=== PATIENT | male | born 1970 | race African-American/Black ===

== ENCOUNTER 2019-07-28 01:17 | Inpatient (IN) | payer MEDICARE, OTHER ==
[~2019-07-28] VITALS: Ht 185.4 cm; Wt 60.3 kg
--- NOTE | 2019-07-28 01:20 | NUR ---
PT BIB EMS C/O TESTICULAR SWELLING X15 MIN CONTRACT DESIGNER. PT AOX4. NAD NOTED. RESP EVEN AND UNLABORED. PT ON MONITOR IN BED 9. WILL CONTINUE TO MONITOR.
--- NOTE | 2019-07-28 01:59 | NUR ---
URINE COLLECTED AND SENT TO LAB
[2019-07-28 02:29] LABS: APPEARANCE,URINE SLIGHTLY CLOUDY (CLEAR); COLOR,URINE YELLOW (YELLOW); PROTEIN,URINE TRACE mg/dl (NEGATIVE); UGLUCOSE NEGATIVE (NEGATIVE)
[2019-07-28 02:30] LABS: BACTERIA,URINE Many /HPF (None Seen); BILIRUBIN,URINE SMALL (NEGATIVE); BLOOD, URINE NEGATIVE Ery/uL (NEGATIVE); KETONES,URINE TRACE (NEGATIVE); LEUKOCYTE ESTERASE ,URINE 2+ (NEGATIVE); NITRITE, URINE POSITIVE (NEGATIVE); RBC,URINE 0-2 /HPF (0-2); SQUAMOUS EPITHELIAL CELL,UR Few /HPF (None Seen); UROBILINOGEN,URINE 0.2 EU/dL (0.2); WBC,URINE TOO NUMEROUS TO COUN /HPF (0-3)
[2019-07-28] MEDS ORDERED: CEFTRIAXONE 1 G in IV D5W 50 ML IV ONE (04:30)
[2019-07-28] MEDS ORDERED: IV NS 0.9% 1,000 ML BAG IV ONE (04:30)
[2019-07-28] MEDS ORDERED: CEFTRIAXONE 1GM BAG (ER ONLY) 50 ML IV ONE (04:50)
--- NOTE | 2019-07-28 04:59 | NUR ---
BLOOD DRAWN AND GIVEN TO LAB
[2019-07-28 05:06] LABS: BASOPHILS % (AUTO) 0.6 % (0.0-2.0); HEMATOCRIT 33 % (39-51); HEMOGLOBIN 10.6 g/dL (13.5-17.5); LYMPHOCYTES # (AUTO) 1.1 /CMM (0.8-4.8); LYMPHOCYTES % (AUTO) 12.7 % (20.0-44.0); MEAN CORPUSCULAR HGB CONC 32 g/dl (31.0-36.0); MEAN CORPUSCULAR VOLUME 93 fL (80-96); MONOCYTES # (AUTO) 0.4 /CMM (0.1-1.30); MONOCYTES % (AUTO) 4.2 % (2.0-12.0); NEUTROPHILS # (AUTO) 7.1 /CMM (1.8-8.9); NEUTROPHILS % (AUTO) 80.5 % (43.0-81.0); PLATELET COUNT (AUTO) 243 /CMM (150-450); RED BLOOD CELL COUNT(AUTO) 3.54 MIL/uL (4.5-6.0); WHITE BLOOD COUNT (AUTO) 8.8 K/uL (4.3-11.0)
[2019-07-28 05:15] LABS: CALCIUM, SERUM 8.5 mg/dL (8.5-10.1); CREATININE 0.9 mg/dL (0.6-1.3)
[2019-07-28] MEDS ORDERED: IV NS 0.9% 250 ML IV ONE (05:31)
[2019-07-28] MEDS ORDERED: CT SWABBABLE VALVE TRANS SET 1 EA INFUS.SET MC ONE (05:31)
[2019-07-28] MEDS ORDERED: IOHEXOL-300 100 ML VIAL IV ONE (05:31)
[2019-07-28] MEDS ORDERED: MORPHINE SULFATE INJ 4 MG/ML DISP.SYRIN ONE (05:35)
--- NOTE | 2019-07-28 05:41 | NUR ---
PT TAKEN TO RADIOLOGY VIA [facility]
[2019-07-28] MEDS ORDERED: MORPHINE SULFATE INJ 2 MG/ML DISP.SYRIN IV ONE (06:00)
--- NOTE | 2019-07-28 07:43 | NUR ---
CALLED [facility] ITS DR. POWERS
--- NOTE | 2019-07-28 07:52 | NUR ---
CALLED FOR [facility] BED.
--- NOTE | 2019-07-28 08:12 | NUR ---
CALLED FOR [facility] BED.
--- NOTE | 2019-07-28 08:18 | NUR ---
CALLED [facility] ITS DR. POWERS
--- NOTE | 2019-07-28 08:45 | NUR ---
REPORT GIVEN TO MAHI COYLE OF [facility]
[2019-07-28 09:25] VITALS: BP 112/57
--- NOTE | 2019-07-28 09:30 | NUR ---
ROAD MAKER NOTES PATIENT ADMITTED FROM ER 48 Y/OLD MALE ON MED /SURGE DX OF RIGHT TESTICULAR MASS/UTI. PATIENT A/O X4, NO ACUTE RESPIRATORY DISTRESS. PATIENT PARAPLEGIC ON LOWER EXTREMITIES, INCONTINENT OF URINE SELF CATHETERIZING. SKIN ASSESSMENT DONE INTACT, PATIENT HAS A EDEMA ON RIGHT TESTICLE, WAS COMPLAINING OF GENERALIZED PAIN 10/10 PER PAIN SCALE. V/S TAKEN BP BP-112/57, R-19, P-71, T-97.8, O2-100 ROOM AIR. NEEDS ATTENDED AND ANTICIPATED, IV ACCESS ON LEFT AC AREA INTACT, STARTED NS AT 100 ML/HR INTACT. DR CORBETT AWARE OF NEW PATIENT AND MEDICATION. CONTINUED MONITORING.
[2019-07-28] MEDS ORDERED: OXYB5TAB16 PO (10:45)
[2019-07-28] MEDS ORDERED: ACET325T53 PO (10:45)
[2019-07-28] MEDS ORDERED: HYDR-4354 PO (10:45)
[2019-07-28] MEDS ORDERED: BACL20TA PO (10:45)
[2019-07-28] MEDS ORDERED: CRAN450C PO (10:45)
[2019-07-28] MEDS ORDERED: ONDANSETRON HCL/PF 4 MG/2 ML VIAL IVP PRN (12:30)
[2019-07-28] MEDS ORDERED: Z GUARD REMEDY 2 OZ OINT TP PRN (12:30)
[2019-07-28] MEDS ORDERED: ACETAMINOPHEN 325 MG TABLET PO PRN (12:30)
[2019-07-28] MEDS ORDERED: MAG HYDROX/AL HYDROX/SIMETH 30 ML UDC PO PRN (12:30)
[2019-07-28] MEDS ORDERED: MAGNESIUM HYDROXIDE 30 ML UDC PO PRN (12:30)
[2019-07-28] MEDS ORDERED: ZOLPIDEM TARTRATE 5 MG TABLET PO PRN (12:30)
[2019-07-28] MEDS: BACLOFEN (10 MG) 10 MG TABLET PO SCH ×2 (13:30→17:47)
[2019-07-28] MEDS: MORPHINE SULFATE INJ 2 MG/ML DISP.SYRIN IV PRN ×3 (13:31→21:57)
[2019-07-28] MEDS: OXYBUTYNIN CHLORIDE 5 MG TABLET PO SCH ×2 (13:31→17:48)
--- NOTE | 2019-07-28 13:31 | NUR ---
RN NOTES ADMINISTERED MORPHINE SULFATE 2 MG/ML IV PUSH FOR PAIN 10/10 GENERALIZED PER PATIENT REQUEST, V/S TAKEN [id number], P-75, R-20. ALSO ADMINISTERED SCHEDULED MEDICATION. PATIENT GET IRRITABLE EASILY. CALL LIGHT WITHIN TO REACH. CONTINUED MONITORING.
[2019-07-28] MEDS: IV NS 0.9% 1,000 ML IV PRN (14:22)
[2019-07-28 16:00] VITALS: BP 112/63
--- NOTE | 2019-07-28 17:53 | NUR ---
rn notes administered morphine sulfate2 mg/ml iv push for generalized pain 06/01 per patient request, v/s taken bp 112/63, p-76, r-18 encouraged to increased fluid intake.
--- NOTE | 2019-07-28 19:22 | NUR ---
rn notes patient catheterized in and out x1 output was 400 ml collected ua/uc at this time. medication were administered for pain effective, call light within to reach. safety precaution maintained al the time. endorsed oncoming nurse follow plan of care.
--- NOTE | 2019-07-28 19:40 | NUR ---
MS RN RECEIVE PT IN BED A/O X 3, STABLE AND NOT IN DISTRESS, SAFETY MEASURES AT ALL TIMES. WILL CONT TO MONITOR
[2019-07-28 20:00] VITALS: BP_SYST 103; BP_SYST 95; BP_DIAS 60
[2019-07-28 22:41] LABS: APPEARANCE,URINE SL CLOUDY (CLEAR); BILIRUBIN,URINE NEGATIVE (NEGATIVE); BLOOD, URINE TRACE Ery/uL (NEGATIVE); COLOR,URINE YELLOW (YELLOW); KETONES,URINE NEGATIVE (NEGATIVE); LEUKOCYTE ESTERASE ,URINE NEGATIVE (NEGATIVE); NITRITE, URINE POSITIVE (NEGATIVE); PH,URINE 6.5 (5.0-8.0); PROTEIN,URINE NEGATIVE (NEGATIVE); UGLUCOSE NEGATIVE (NEGATIVE); UROBILINOGEN,URINE 0.2 EU/dL (0.2)
--- NOTE | 2019-07-28 22:53 | NUR ---
[facility]INA HOSPITALIST SPOKE TO CARLOS PT C/O REQUESTING TO INCREASE DOSAGE OF HIS MORPHINE PT FEELS 2 MG DOESN'T LAST LONG WITH HIS PAIN IN HIS TESTICULAR. PER CARLOS HOSPITALIST "YOU CAN REPLACE THE NEXT DOSE WITH MORPHINE 4 MG IVP X 1 BUT STICK TO MORPHINE 2MG IVP Q4HR AFTER THAT. GIVE AT 07/29/19 0157 MORPHINE 4 MG IVP X 1 ONCE. READ BACK AND VERIFIED ORDERS NOTED AND CARRIED OUT.
[2019-07-28 23:30] LABS: BACTERIA,URINE Many /HPF (None Seen); SQUAMOUS EPITHELIAL CELL,UR Few /HPF (None Seen)
[2019-07-29] MEDS ORDERED: MORPHINE SULFATE INJ 4 MG/ML DISP.SYRIN IV ONE (01:57)
[2019-07-29] MEDS: IV NS 0.9% 1,000 ML IV PRN ×2 (04:48→22:16)
[2019-07-29] MEDS: CEFTRIAXONE 1 G in IV D5W 50 ML IV SCH (05:00)
--- NOTE | 2019-07-29 06:13 | NUR ---
MS RN PT ASLEEP AND EASILY AWAKEN, NO S/S OF DISTRESS. STABLE. NEEDS ATTENDED AND ANTICIPATED. KEPT CLEAN, DRY AND COMFORTABLE. AM CARE RENDERED. ASSISTED REPOSITION EVERY 2 HOURS. SAFETY MEASURES AT ALL TIMES. WILL ENDORSE TO NEXT SHIFT.
[2019-07-29] MEDS: MORPHINE SULFATE INJ 2 MG/ML DISP.SYRIN IV PRN ×5 (06:24→20:05)
--- NOTE | 2019-07-29 06:53 | NUR ---
SPECIMEN COLLECTED FOR MRSA GIVEN TO LAB
[2019-07-29 07:27] LABS: BASOPHILS % (AUTO) 0.4 % (0.0-2.0); EOSINOPHILS % (AUTO) 5.5 % (0.0-6.0); HEMATOCRIT 25 % (39-51); HEMOGLOBIN 8.1 g/dL (13.5-17.5); LYMPHOCYTES # (AUTO) 1.7 /CMM (0.8-4.8); MEAN CORPUSCULAR HGB CONC 32 g/dl (31.0-36.0); MEAN CORPUSCULAR VOLUME 92 fL (80-96); MONOCYTES # (AUTO) 0.4 /CMM (0.1-1.30); MONOCYTES % (AUTO) 8.1 % (2.0-12.0); NEUTROPHILS # (AUTO) 2.1 /CMM (1.8-8.9); PLATELET COUNT (AUTO) 182 /CMM (150-450); WHITE BLOOD COUNT (AUTO) 4.5 K/uL (4.3-11.0)
[2019-07-29 07:50] LABS: THYROID STIMULATING HORMONE 1.195 uIU/mL (0.358-3.74)
[2019-07-29 08:00] VITALS: BP 102/61
[2019-07-29 08:04] LABS: CALCIUM, SERUM 8.2 mg/dL (8.5-10.1); CREATININE 0.7 mg/dL (0.6-1.3); MAGNESIUM 1.7 mg/dL (1.8-2.4); PHOSPHORUS 2.8 mg/dL (2.5-4.9)
[2019-07-29] MEDS ORDERED: DIATR MEGLU/DIATRIZOATE SODIUM 30 ML BOTTLE (GASTROGRAPHIN) ONE (08:37)
[2019-07-29] MEDS: OXYBUTYNIN CHLORIDE 5 MG TABLET PO SCH ×2 (08:50→17:15)
[2019-07-29] MEDS: BACLOFEN (10 MG) 10 MG TABLET PO SCH ×2 (08:50→17:15)
[2019-07-29] MEDS: HYDROCODONE/APAP 5/325MG 1 EACH TABLET PO PRN (08:50)
--- NOTE | 2019-07-29 11:50 | NUR ---
MS/RN morphine Patient requesting for morphine and I obtained 2mg morphine as ordered. As I entered the room, patient requests higher dose of morphine and Dr. Ireland agreed to raise the dose to 3mg IV Q4H PRN. I did not give the patient the morphine yet. I changed the order per Dr. Ireland and obtained 1mg morphine from the [facility], to have a total of 3mg morphine. Latanya COYLE as a witness to waste partial dose.
[2019-07-29] MEDS ORDERED: Magnesium 1GM/D5W 100ML PREMIX 100 ML IV SCH (12:00)
[2019-07-29] MEDS ORDERED: IOHEXOL-300 100 ML VIAL IV ONE (12:49)
[2019-07-29] MEDS ORDERED: CT SWABBABLE VALVE TRANS SET 1 EA INFUS.SET MC ONE (12:49)
[2019-07-29] MEDS ORDERED: IV NS 0.9% 250 ML IV ONE (12:49)
[2019-07-29] MEDS ORDERED: MAGNESIUM OXIDE 400 MG TABLET PO ONE (13:00)
[2019-07-29 16:00] VITALS: BP 119/82
--- NOTE | 2019-07-29 19:15 | NUR ---
MS RN CLOSING NOTE PATIENT IN BED RESTING COMFORTABLY. PATIENT IN NO ACUTE DISTRESS. NO SOB NOTED. PATIENT BREATHING IS EVEN AND UNLABORED. PATIENT NEEDS AND CONCERNS ADDRESSED. PATIENT KEPT CLEAN, DRY, AND COMFORTABLE THROUGHOUT SHIFT. PATIENT EXTREMITIES OFFLOADED ON PILLOWS. BED ALARM IS ON. PATIENT BED IS LOCKED AND IN LOWEST POSITION. CALL LIGHT WITHIN REACH. SAFETY PRECAUTIONS IN PLACE. WILL ENDORSE CARE TO PM SHIFT FOR FRANCISCO.
--- NOTE | 2019-07-29 19:45 | NUR ---
RN NOTES/ASSESSMENT: RECEIVED REPORT FROM MAGY COYLE. PT RESTING IN BED, C/O ABDOMENA ND BACK PAIN, WILLING TO WAIT FOR MORPHINE AT 1999. PER REPORT ONLY WANTS MORPHINE AND BEEN REFUSING IVF, AWARE. NO FACIAL GRIMACE NOTED, LAUGHING WHILE WATCHING MOVIES ON HIS CELLPHONE. PT IS PARAPLEGIC BUT ABLE TO TRANSFER HIMSELF TO WHEELCHAIR, SELF CATHETERIZE HIMSELF, AND TURN AND REPOSITION IN BED. NOTED IV ACCESS DRESSING CAME OFF, PT JUST WANT IT CHANGE, OFFERED TO CHANGE IV ACCESS BUT PT REFUSED. WHEN CHECKED, IV ACCESS PATENT AND FLUSHING WELL WITHOUT MEETING ANY RESISTANCE. DRESSING CHANGED PROVIDED, PLACED ON HL. SAFETY PRECAUTIONS FOR FALL INITIATED, CALL LIGHT IN REACH, WILL CONTINUE MONITORING PT.
[2019-07-29 20:00] VITALS: BP 118/66
--- NOTE | 2019-07-29 20:05 | NUR ---
PRN MORPHINE: PT CALLED STATED HE'S IN PAIN, ABDL AND BACK AREA 10/, REQUESTING FOR MORPHINE. PRN MORPHINE 3MG IVP ADMINISTERED TO PT AT THIS TIME, WILL CONTINUE TO MONITOR AND REASSESS PT.
[2019-07-29 20:33] VITALS: BP 118/66
--- NOTE | 2019-07-29 22:16 | NUR ---
RN NOTES: PT REFUSED IVF, STATED HE'S BEEN DRINKING AND EATING. EDUCATION PROVIDED TO PT. ALSO REFUSED SCD, EDUCATE PT REGARDING RISK AND BENEFITS
[2019-07-30] MEDS: MORPHINE SULFATE INJ 2 MG/ML DISP.SYRIN IV PRN ×6 (00:06→21:16)
--- NOTE | 2019-07-30 00:06 | NUR ---
PRN MORPHINE: PT C/O 06/01 ABDL AND BACK PAIN, REQUESTING FOR MORPHINE, PRN MORPHINE 3MG IVP ADMINISTERED TO PT AT THIS TIME, WILL CONTINUE TO MONITOR AND REASSESS PT.
[2019-07-30] MEDS: HYDROCODONE/APAP 5/325MG 1 EACH TABLET PO PRN (01:37)
--- NOTE | 2019-07-30 01:37 | NUR ---
PRN NORCO: PT C/O 03/01 ABDOMEN, SCROTUM AND BACK PAIN REQUESTING FOR NORCO, PRN NORCO 5/325 MG TAB PO ADMINISTERED TO PT AT THIS TIME, WILL CONTINUE TO MONITOR.
--- NOTE | 2019-07-30 04:06 | NUR ---
PRN MORPHINE: PRN MORPHINE 3MG IVP ADMINISTERED TO PT FOR C/O BACK, SCROTUM AND ABDOMINAL PAIN 06/01.
[2019-07-30] MEDS: CEFTRIAXONE 1 G in IV D5W 50 ML IV SCH (05:14)
--- NOTE | 2019-07-30 06:48 | NUR ---
END OF SHIFT REPORT: LAST PAIN MEDICATION ADMINISTERED AT 0400AM FOR C/O ABDL AND BACK PAIN. IV ACCESS REMAINS PATENT AND FLUSHING WELL, ON HL, PT REFUSED IVF, DESPITE PROVIDING EDUCATION. NO FURTHER COMPLAINTS NOTED. VS REMAINS STABLE, NEEDS ATTENDED. AWAITING SURGICAL CONSULT FOR INGUINAL HERNIA, WOUND CARE CONSULT FOR MULTIPLE RAISED BUMPS IN BLE. SAFETY PRECAUTIONS FOR FALL REMAINS ENGAGED, CALL LIGHT IN REACH, WILL ENDORSE TO DAY RN FOR CONTINUITY OF CARE.
--- NOTE | 2019-07-30 07:05 | NUR ---
RN OPENING NOTES RECEIVED PATIENT IN BED SLEEPING, AROUSES EASILY. A/OX4, ABLE TO MAKE NEED KNOWN. NOT IN ANY FORM OF DISTRESS. IV ACCESS INTACT AND PATENT. NEEDS ATTENDED. KEPT PATIENT SAFE AND COMFORTABLE. BED IN LOW/LOCKED POSITION, SIDERAILS UPX2, CALL LIGHT IN REACH. WILL CONT TO MONITOR ACCORDINGLY
[2019-07-30 08:13] VITALS: BP 130/62
[2019-07-30] MEDS: BACLOFEN (10 MG) 10 MG TABLET PO SCH ×2 (08:20→16:24)
[2019-07-30] MEDS: OXYBUTYNIN CHLORIDE 5 MG TABLET PO SCH ×2 (08:20→16:24)
[2019-07-30 08:21] LABS: BASOPHILS % (AUTO) 0.1 % (0.0-2.0); EOSINOPHILS % (AUTO) 2.1 % (0.0-6.0); HEMATOCRIT 26 % (39-51); HEMOGLOBIN 8.4 g/dL (13.5-17.5); LYMPHOCYTES # (AUTO) 1.2 /CMM (0.8-4.8); LYMPHOCYTES % (AUTO) 18.2 % (20.0-44.0); MEAN CORPUSCULAR HGB CONC 33 g/dl (31.0-36.0); MEAN CORPUSCULAR VOLUME 92 fL (80-96); MONOCYTES # (AUTO) 0.4 /CMM (0.1-1.30); MONOCYTES % (AUTO) 6.2 % (2.0-12.0); NEUTROPHILS # (AUTO) 4.7 /CMM (1.8-8.9); NEUTROPHILS % (AUTO) 73.4 % (43.0-81.0); PLATELET COUNT (AUTO) 195 /CMM (150-450); RED BLOOD CELL COUNT(AUTO) 2.81 MIL/uL (4.5-6.0); WHITE BLOOD COUNT (AUTO) 6.4 K/uL (4.3-11.0)
[2019-07-30 08:24] LABS: CALCIUM, SERUM 8.2 mg/dL (8.5-10.1); CREATININE 0.8 mg/dL (0.6-1.3); MAGNESIUM 1.7 mg/dL (1.8-2.4); PHOSPHORUS 2.9 mg/dL (2.5-4.9); POTASSIUM 4.3 mmol/L (3.5-5.1)
[2019-07-30] MEDS: Magnesium 1GM/D5W 100ML PREMIX 100 ML IV SCH ×3 (10:00→10:37)
[2019-07-30] MEDS: HYDROCODONE/APAP 10/325MG 1 EA TABLET PO PRN ×2 (10:35→14:59)
--- NOTE | 2019-07-30 10:37 | NUR ---
rn notes patient refused magnesium sulfate IV. offered if he would like to magnesium via PO route but patient still refused. explained risk and benefits but still refused. per patient, "please, i said no". will notify
[2019-07-30 12:17] LABS: RBC,URINE 0-2 /HPF (0-2)
[2019-07-30] MEDS: IV NS 0.9% 1,000 ML IV PRN (12:55)
[2019-07-30] MEDS ORDERED: diphenhydrAMINE HCL/ZINC ACET CREAM 28.3 GM TUBE TP PRN (13:00)
[2019-07-30 16:22] VITALS: BP 107/59
--- NOTE | 2019-07-30 19:10 | NUR ---
RN pietersurjuan opening notes Received Pt from morning nurse. Pt is sitting in bed comfortably. Pt is alert and orientedX4, verbally abusive and aggresive. Respiration is normal in room air. IV sites at LFA# 22 is clean, intact and patent. Pt refuse IV fluids. Made aware benefits and risks. Pt keep refusing. Instructed to call. Safety precautions is maintained. Bed at low position, brakes locked, side rails upX2 and call light is within reach. Will continue to monitor.
--- NOTE | 2019-07-30 19:36 | NUR ---
RN CLOSING NOTES PATIENT IN STABLE CONDITION. NO SIGNIFICANT CHANGE OF CONDITION DURING THE SHIFT. ALL NEEDS ATTENDED AND PROVIDED. ALL DUE MEDICATIONS GIVEN ORDERED. KEPT PATIENT SAFE AND COMFORTABLE. BED IN LOWEST LOCKED POSITION. SIDERAILS UPX2, CALL LIGHT IN REACH. ENDORSED TO NIGHT RN FOR FRANCISCO.
--- NOTE | 2019-07-30 19:40 | NUR ---
RN medsur notes Dr. Live called and asked about Pt. asked to send a picture of pt's R testicular mass.
--- NOTE | 2019-07-30 19:50 | NUR ---
RN medsurg notes Send a picture of Pt's right testicular mass to Dr. Live. Charge nurse is aware and informed.
[2019-07-30 20:00] VITALS: BP 123/70
[2019-07-30] MEDS: MUPIROCIN OINT 2% 22 GM TUBE SCH (21:00)
--- NOTE | 2019-07-30 21:16 | NUR ---
LEONIDES deleon notes Pt is complaining of pain. Administered 3 mg/1.5ml as ordered for pain for pain per pt request. Safety precautions is maintained. Instructed to call. Pt is very aggresive, verbally abusive, demanding and non compliant. Pt called staff "bitch!! mother fucker!! fuck that eyebrow!! Charge nurse is aware and informed. Addendum: 07/30/19 at 2342 by BREANNA YA RN Administered morphine sulfate inj 3mg/1.5ml as ordered for pain.
--- NOTE | 2019-07-31 01:00 | NUR ---
RN medsurg notes Pt refuse weekly skin pictures. Made aware risks and benefits. Pt keep refusing. Pt is verbally abusive and aggresive. Will continue to monitor
[2019-07-31] MEDS: MORPHINE SULFATE INJ 2 MG/ML DISP.SYRIN IV PRN ×2 (01:21→05:56)
--- NOTE | 2019-07-31 01:31 | NUR ---
MS/RN NOTES PATIENT REPORTED SEVERE PAIN , SCREAMING AND IRRITABLE , IVP PRN MEDICATION ADMINISTERED ORDERED 3MG/1.5 ML OF MORPHINE. BLOOD PRESSURE CHECK.
[2019-07-31] MEDS: HYDROCODONE/APAP 10/325MG 1 EA TABLET PO PRN (03:35)
--- NOTE | 2019-07-31 04:51 | NUR ---
RN pancho notes Pt is verbally abusive, aggresive, and non compliant. Pt threw everything on the floor for the second time. Informed Pt not to do that. Pt keep using bad words to talk. Pt stated "Don't fuck with me. You ass." Charge nurse is aware and notified.
[2019-07-31] MEDS: CEFTRIAXONE 1 G in IV D5W 50 ML IV SCH (05:22)
--- NOTE | 2019-07-31 07:15 | NUR ---
RN medsurg closing notes Pt is resting in bed comfortably. Respiration is normal in room air. No SOB. No S/S of distress noted. IV sites LAC# 20 is clean, intact, patent and infusing well NS @ 75ml/hr. Routine meds were given as ordered including PRN meds for pain management. Kept Pt safe, clean, dry, warm and comfortable. All needs met and attended. Contact precautions is maintained for MRSA. Bed at low position, brakes locked, side rails upX2 and call light is within reach. Will endorse to morning nurse for FRANCISCO.
[2019-07-31 07:22] LABS: BASOPHILS % (AUTO) 0.1 % (0.0-2.0); EOSINOPHILS % (AUTO) 3.4 % (0.0-6.0); HEMATOCRIT 26 % (39-51); HEMOGLOBIN 8.3 g/dL (13.5-17.5); LYMPHOCYTES % (AUTO) 21.2 % (20.0-44.0); MEAN CORPUSCULAR HGB CONC 32 g/dl (31.0-36.0); MEAN CORPUSCULAR VOLUME 92 fL (80-96); MONOCYTES # (AUTO) 0.5 /CMM (0.1-1.30); MONOCYTES % (AUTO) 10.3 % (2.0-12.0); NEUTROPHILS # (AUTO) 3.2 /CMM (1.8-8.9); PLATELET COUNT (AUTO) 197 /CMM (150-450); RED BLOOD CELL COUNT(AUTO) 2.81 MIL/uL (4.5-6.0); WHITE BLOOD COUNT (AUTO) 4.9 K/uL (4.3-11.0)
[2019-07-31 07:33] LABS: ALBUMIN 2.9 g/dL (3.4-5.0); BILIRUBIN,DIRECT 0.1 mg/dL (0.0-0.2); BILIRUBIN,TOTAL 0.2 mg/dL (0.2-1.0); CALCIUM, SERUM 8.2 mg/dL (8.5-10.1); CREATININE 0.8 mg/dL (0.6-1.3); MAGNESIUM 1.7 mg/dL (1.8-2.4); POTASSIUM 4.2 mmol/L (3.5-5.1); TOTAL PROTEIN, SERUM 6.2 g/dL (6.4-8.2)
--- NOTE | 2019-07-31 07:36 | NUR ---
RN OPENING NOTES RECEIVED PATIENT IN BED RESTING COMFORTABLY IN MODERATE HIGH BACK REST. A/O X4. NO SIGNS OF DISTRESS NOTED AT THIS TIME. IV ACCESS ON LAC#20 WITH NS RUNNING @75ML/HR. PATENT AND INTACT. SAFETY MEASURES IN PLACE, BED IN LOW LOCKED POSITION WITH SIDE RAILS UP X2. CALL LIGHT WITHIN REACH. WILL CONTINUE TO MONITOR.
[2019-07-31 07:44] LABS: THYROID STIMULATING HORMONE 3.662 uIU/mL (0.358-3.74)
[2019-07-31 08:32] VITALS: BP 120/71
[2019-07-31] MEDS: BACLOFEN (10 MG) 10 MG TABLET PO SCH ×2 (08:41→16:25)
[2019-07-31] MEDS: OXYBUTYNIN CHLORIDE 5 MG TABLET PO SCH ×2 (08:41→16:25)
--- NOTE | 2019-07-31 08:54 | NUR ---
WOUND CARE CONSULT: PT ADAMANTLY REFUSED SKIN ASSESSMENT AND YELLED " CLOSE THE DOOR". PER NURSING STAFF PT IS CONTINENT WITH SELF-CATH AT THIS TIME AND IS INDEPENDENT WITH BED MOBILITY WELL TRASFERS TO WHEELCHAIR. WILL SEE PRN.
[2019-07-31] MEDS: MUPIROCIN OINT 2% 22 GM TUBE SCH ×2 (09:41→20:25)
[2019-07-31] MEDS: Magnesium 1GM/D5W 100ML PREMIX 100 ML IV SCH ×2 (10:00→11:00)
--- NOTE | 2019-07-31 10:00 | NUR ---
RN NOTES PATIENT REFUSED MAGNESSIUM REPLACEMENTS, ALSO REFUSED IV FLUIDS OF 0.9 NS. EXPLAINED THE RISKS AND BENEFITS BUT PATIENT STILL REFUSED. MD AWARE. PATIENT IS NON-COMPLIANT. WILL CONTINUE TO MONITOR.
[2019-07-31] MEDS: MORPHINE SULFATE INJ 4 MG/ML DISP.SYRIN IV PRN ×3 (10:55→20:24)
[2019-07-31 16:08] VITALS: BP 119/71
[2019-07-31] MEDS: HYDROCODONE/APAP 5/325MG 1 EACH TABLET PO PRN (16:28)
--- NOTE | 2019-07-31 18:35 | NUR ---
RN CLOSING NOTES PATIENT IN BED RESTING COMFORTABLY IN MODERATE HIGH BACK REST. A/O X4. NO SIGNS OF DISTRESS NOTED THROUGHOUT THE SHIFT. NON-COMPLIANT WITH SOME MEDICATIONS, VERBALLY ABUSIVE. MADE AWARE. IV ACCESS ON LAC#20 WITH NS RUNNING @75ML/HR. PATENT AND INTACT. PATIENT SCHEDULED FOR SURGERY TOMORROW (08/01/19) WITH DR. LEARY. CONSENT SIGNED. SAFETY MEASURES IN PLACE, BED IN LOW LOCKED POSITION WITH SIDE RAILS UP X2. CALL LIGHT WITHIN REACH. WILL ENDORSE TO GLASS ROBOT OPERATOR NURSE FOR FRANCISCO.
--- NOTE | 2019-07-31 19:40 | NUR ---
RN NOTES RECEIVED PATIENT IN HIS WHEELCHAIR RESTING COMFORTABLY, A/O X4. NO SIGNS OF DISTRESS NON-COMPLIANT WITH SOME MEDICATIONS, VERBALLY ABUSIVE. MD MADE AWARE. IV ACCESS ON LAC#20 PATENT AND INTACT. PATIENT SCHEDULED FOR SURGERY TOMORROW (08/01/19) WITH DR. LEARY. CONSENT SIGNED. SAFETY MEASURES IN PLACE, BED IN LOW LOCKED POSITION WITH SIDE RAILS UP X2. WILL CONTINUE TO MONITOR ACCORDINGLY.
[2019-07-31 20:00] VITALS: BP 120/68
[2019-07-31 20:15] VITALS: BP 120/68
--- NOTE | 2019-07-31 20:24 | NUR ---
RN NOTES MORPHINE 3 MG IV GIVEN PER ORDER FOR COMPLAINTS OF SEVERE PAIN 06/01. WILL MONITOR.
[2019-08-01] MEDS: HYDROCODONE/APAP 5/325MG 1 EACH TABLET PO PRN ×3 (00:20→00:23)
--- NOTE | 2019-08-01 00:24 | NUR ---
RN NOTES PATIENT COMPLAINTS OF PAIN ASKING FOR NORCO 5-325 MG PO, INSTRUCTED PATIENT HE IS ON NPO FOR UPCOMING SURGERY AT NOONTIME. PATIENT INSISTED, HOWEVER, PATIENT SPIT AND THROE AWAY THE NORCO TABLET, AND NOW ASKING TO HAVE IV MORPHINE SHOT INSTEAD. PATIENT IS VERBALLY ABUSIVE TO STAFF, DEMANDING AND YELLING.
[2019-08-01] MEDS: MORPHINE SULFATE INJ 4 MG/ML DISP.SYRIN IV PRN ×2 (00:46→11:20)
--- NOTE | 2019-08-01 00:46 | NUR ---
RN NOTES MORPHINE 3 MG IV GIVEN FOR C/O SEVERE PAIN 06/01 PER PATIENT.
[2019-08-01] MEDS ORDERED: HALOPERIDOL LACTATE INJ 5 MG/ML VIAL IM ONE (01:00)
--- NOTE | 2019-08-01 01:07 | NUR ---
RN NOTES HALDOL LACTATE INJ 5MG GIVEN PER IM PER ORDERED. SECURITY STILL AT BEDSIDE, UNABLE TO DO EKG PATIENT IS STILL COMBATIVE. SECURITY AND MALE STAFF AT BEDSIDE TRYING TO CALM THE PATIENT DOWN. WILL CONTINUE TO MONITOR PATIENT.
--- NOTE | 2019-08-01 01:10 | NUR ---
RN NOTES LEONARDO DELACRUZ CALLED. PATIENT THROWING ALL ITEMS +INSIDE HIS ROOM, ( PITCHER, CUPS, TELEPHONE, PILLOWS ETC.) VERBALLY ABUSIVE SCREAMING, YELLING, SHOUTING. Addendum: 08/01/19 at 0459 by KIM FRIEDMAN RN LEONARDO DELACRUZ CALLED AT 0100
--- NOTE | 2019-08-01 02:08 | NUR ---
RN NOTES PATIENT IS CALM, RESTING COMFORTABLY AT THIS TIME, NOT VERBALLY ABUSIVE. WILL CONTINUE TO MONITOR.
--- NOTE | 2019-08-01 05:03 | NUR ---
RN NOTES CHECKED PATIENT, CALM AND RESTING COMFORTABLY, ASLEEP BUT AROUSABLE. NO APPARENT DISTRESS NOTED UPON ROUNDS.
--- NOTE | 2019-08-01 05:33 | NUR ---
RN NOTES PATIENT REFUSED AM LABS. WILL FOLLOW LATER.
--- NOTE | 2019-08-01 06:00 | NUR ---
PT REFUSED EKG SCHEDULED @ 6:00 AM, LEONIDES CHANDRA NOTIFIED.
[2019-08-01] MEDS: CEFTRIAXONE 1 G in IV D5W 50 ML IV SCH (06:08)
--- NOTE | 2019-08-01 06:32 | NUR ---
RN NOTES ALL NEEDS ATTENDED AND MET, PATIENT IS CALM RESTING COMFORTABLY. SAFETY MEASURES IN PLACED. NPO SINE 12:30 MIDNIGHT. WILL ENDORSE TO AM NURSE FOR CONTINUITY OF CARE. Addendum: 08/01/19 at 0648 by KIM FRIEDMAN RN RN NOTES ALL NEEDS ATTENDED AND MET, PATIENT IS CALM RESTING COMFORTABLY. SAFETY MEASURES IN PLACED. NPO SINCE 12:30 MIDNIGHT. WILL ENDORSE TO AM NURSE FOR CONTINUITY OF CARE.
[2019-08-01 08:00] VITALS: BP 125/77
--- NOTE | 2019-08-01 08:00 | NUR ---
m/s blade boner: initial assessment received pt in bed asleep, but easily arousable. easily agitated. refusing oral temp check and assessment. pt also verbally abusive doing conversation. pt aware of surgery today and has been npo since midnight. instructed to call for assistance.
[2019-08-01] MEDS: OXYBUTYNIN CHLORIDE 5 MG TABLET PO SCH ×2 (08:59→17:25)
[2019-08-01] MEDS: BACLOFEN (10 MG) 10 MG TABLET PO SCH ×2 (08:59→17:25)
[2019-08-01] MEDS: MUPIROCIN OINT 2% 22 GM TUBE SCH ×2 (08:59→20:26)
--- NOTE | 2019-08-01 09:00 | NUR ---
m/s reconditioner: notes pt also refused blood draw earlier this morning and will come back later for blood draw.
[2019-08-01 09:56] LABS: BASOPHILS % (AUTO) 0.3 % (0.0-2.0); EOSINOPHILS % (AUTO) 2.6 % (0.0-6.0); HEMATOCRIT 31 % (39-51); HEMOGLOBIN 10.1 g/dL (13.5-17.5); LYMPHOCYTES # (AUTO) 0.8 /CMM (0.8-4.8); LYMPHOCYTES % (AUTO) 12.3 % (20.0-44.0); MEAN CORPUSCULAR HGB CONC 33 g/dl (31.0-36.0); MEAN CORPUSCULAR VOLUME 93 fL (80-96); MONOCYTES # (AUTO) 0.5 /CMM (0.1-1.30); MONOCYTES % (AUTO) 8.2 % (2.0-12.0); NEUTROPHILS # (AUTO) 5.1 /CMM (1.8-8.9); NEUTROPHILS % (AUTO) 76.6 % (43.0-81.0); PLATELET COUNT (AUTO) 239 /CMM (150-450); RED BLOOD CELL COUNT(AUTO) 3.31 MIL/uL (4.5-6.0); WHITE BLOOD COUNT (AUTO) 6.6 K/uL (4.3-11.0)
[2019-08-01 10:10] LABS: CALCIUM, SERUM 9.1 mg/dL (8.5-10.1); CREATININE 0.7 mg/dL (0.6-1.3); MAGNESIUM 1.9 mg/dL (1.8-2.4); POTASSIUM 3.9 mmol/L (3.5-5.1)
--- NOTE | 2019-08-01 11:00 | NUR ---
m/s front line supervisor: notes pt was picked up by o.r. team for surgery, prior to picking up pt argumentative to staff, but eventually agreed to go.
--- NOTE | 2019-08-01 11:20 | NUR ---
m/s hot box spotter: notes pt returned back due to dr. stauffer has an emergency at [facility] per o.r. nurse. pt c/o 05/02 medial back and scrotum pain, medicated with morphine 3mg ivp by rn. will continue to monitor.
--- NOTE | 2019-08-01 11:50 | NUR ---
m/s industrial electrician journeyman: notes pt remains npo, pt to have surgery this afternoon. pt aware. voiced no discomfort.
--- NOTE | 2019-08-01 12:22 | NUR ---
m/s mail officer: notes taken down to o.r. via bed at this time.
[2019-08-01] MEDS ORDERED: BUPIVACAINE 0.5 % PF 150 MG/30 ML VIAL ONE (12:38)
[2019-08-01] MEDS ORDERED: LIDOCAINE HCL/MPF 1% 30 ML VIAL IJ ONE (12:38)
[2019-08-01] MEDS ORDERED: LIDOCAINE 1%-EPI 1:100,000 20 ML VIAL ONE (12:44)
[2019-08-01] MEDS ORDERED: ANESTHESIA TRAY IN PYXIS 1 EA TRAY MC ONE (12:47)
[2019-08-01] MEDS ORDERED: BACITRACIN ZINC OINT (15 GM) 15 GM TUBE TP ONE (14:46)
[2019-08-01] MEDS ORDERED: FENTANYL PF 100MCG/2ML AMPUL ONE (15:10)
[2019-08-01 15:50] VITALS: BP 119/78
--- NOTE | 2019-08-01 15:50 | NUR ---
m/s sealer sander: notes received pt from recovery room with dx: s/p 1. Right testicular hydrocelectomy, hemorrhagic 2 hydroceles were present, one simple hydrocele, the other is a large hematoma. 2. Evacuation of large blood clot, right scrotum. 3. Orchiopexy. jason drain bulb suction in place. no c/o pain at this time. pt with a carrillo catheter that was inserted by o.r. nurse. vss, afebrile. pt more cooperative at this time and in a good mood. request for food and provided. instructed to call for assistance. will continue to monitor.
[2019-08-01] MEDS ORDERED: ONDANSETRON HCL/PF 4 MG/2 ML VIAL IVP PRN (16:00)
[2019-08-01] MEDS: HYDROMORPHONE 1 MG/1 ML DISP.SYRIN IV PRN ×3 (17:28→23:46)
--- NOTE | 2019-08-01 17:30 | NUR ---
m/s rough and trueing machine operator: notes dinner served, pt c/o not wanting renal diet, wants diet change back to regular diet and also pt wants to increase his dilaudid dose. informed pt that his frequency is q 3 hours prn per surgeon's order. dr. stauffer notiified and made aware with diet order change to regular. order read back. pt was medicated with dilaudid 1mg ivp by rn at 1728 due to c/o 8/10 generalized discomfort. instructed to call for assistance.
--- NOTE | 2019-08-01 17:58 | NUR ---
m/s medical lab specialist: notes in bed with eyes close. resting comfortable. no distress noted. call light within reach.
--- NOTE | 2019-08-01 19:15 | NUR ---
m/s scada technician: notes jason drained with 20ml of bloody output. f/c catheter emptied with 300ml of clear daniel urine output. report given to sandra (rn) for continuity of care. needs attended. will continue to monitor.
--- NOTE | 2019-08-01 19:39 | NUR ---
M/S RN OPENING NOTES Patient is currently resting in bed A/O x4. No signs of acute distress and no SOB noted. Patient is wheelchair bound and has carrillo catheter in place. IV located on left forearm #22. Metilex dressing on right testicular area, area clean and dry. LAWRENCE drain emptied by previous nurse, currently empty. Safety precautions in place with bed in lowest position, side rails up X2, breaks, and call light within reach. Will continue to monitor.
[2019-08-01 20:00] VITALS: BP 115/70
--- NOTE | 2019-08-02 00:04 | NUR ---
M/S RN NOTES Patient emptied LAWRENCE drain out himself. Went to assess, 40 cc of red blood fluid removed with a small blood clot. LAWRENCE drain now unable to create suction. Dressing slightly soiled and was reinforced.Educated patient to not play with site and to not touch LAWRENCE drain. Will continue to monitor.
[2019-08-02] MEDS: HYDROMORPHONE 1 MG/1 ML DISP.SYRIN IV PRN ×5 (03:39→16:03)
--- NOTE | 2019-08-02 04:06 | NUR ---
M/S RN NOTES PATIENT REMOVED LAWRENCE DRAIN. SOILED DRESSING AT SITE, NOW LITTLE TO NO BLEEDING. REINFORCED DRESSING WITH GAUZE AND TAPE. WILL CONTINUE TO MONITOR.
[2019-08-02] MEDS: CEFTRIAXONE 1 G in IV D5W 50 ML IV SCH (05:04)
--- NOTE | 2019-08-02 06:08 | NUR ---
M/S RN CLOSING NOTES Patient currently resting in bed A/O x3. On room air breathing even and unlabored. Patient on carrillo cath with yellow clear urine. IV located on left FA #22 patent and intact. Surgical sites located around groin area, reinforced with gauze. Patient removed LAWRENCE drainage, but was able to drain up to 30cc beginning of shift. Patient is wheelchair bound, but able to move in bed. Safety precautions in place with bed in lowest position, side rails up x2, and call light within reach. All needs were met and patient was kept clean and dry. Will endorse to oncoming shift about FRANCISCO.
[2019-08-02 07:07] LABS: BASOPHILS % (AUTO) 0.3 % (0.0-2.0); EOSINOPHILS % (AUTO) 0.8 % (0.0-6.0); HEMATOCRIT 28 % (39-51); HEMOGLOBIN 9.1 g/dL (13.5-17.5); LYMPHOCYTES # (AUTO) 0.9 /CMM (0.8-4.8); LYMPHOCYTES % (AUTO) 11.4 % (20.0-44.0); MEAN CORPUSCULAR HGB CONC 33 g/dl (31.0-36.0); MEAN CORPUSCULAR VOLUME 92 fL (80-96); MONOCYTES # (AUTO) 0.7 /CMM (0.1-1.30); MONOCYTES % (AUTO) 8.9 % (2.0-12.0); NEUTROPHILS # (AUTO) 6.1 /CMM (1.8-8.9); NEUTROPHILS % (AUTO) 78.6 % (43.0-81.0); PLATELET COUNT (AUTO) 235 /CMM (150-450); WHITE BLOOD COUNT (AUTO) 7.8 K/uL (4.3-11.0)
[2019-08-02 07:25] LABS: CALCIUM, SERUM 8.4 mg/dL (8.5-10.1); CREATININE 0.9 mg/dL (0.6-1.3); MAGNESIUM 1.6 mg/dL (1.8-2.4); PHOSPHORUS 2.6 mg/dL (2.5-4.9); POTASSIUM 4.4 mmol/L (3.5-5.1)
[2019-08-02 08:00] VITALS: BP 131/76
--- NOTE | 2019-08-02 08:35 | NUR ---
ms rn received on bed, awake,alert,oriented x4,not in any form of distress, respirations even and unlabored,no sob noted, lungs are lear,abdoemn soft,positive bowel sounds, will monitor patient's condition.
[2019-08-02] MEDS: MUPIROCIN OINT 2% 22 GM TUBE SCH (09:00)
[2019-08-02] MEDS: OXYBUTYNIN CHLORIDE 5 MG TABLET PO SCH (09:10)
[2019-08-02] MEDS: BACLOFEN (10 MG) 10 MG TABLET PO SCH (09:10)
[2019-08-02] MEDS: HYDROCODONE/APAP 5/325MG 1 EACH TABLET PO PRN (09:11)
--- NOTE | 2019-08-02 09:30 | NUR ---
ms rn breakfast served,due meds given,tolerated well.regularly getting his pain meds,noted to have hemovac removed, carrillo to gravity, scrotal swelling at this time.
[2019-08-02] MEDS: Magnesium 1GM/D5W 100ML PREMIX 100 ML IV SCH ×3 (10:00→12:18)
[2019-08-02] MEDS ORDERED: SOD FERRIC GLUC 125 MG in IV NS 0.9% 100 ML IV SCH (14:00)
--- NOTE | 2019-08-02 14:00 | NUR ---
ms rn carrillo catheter removed w/ 850 output,all needs attended.
[2019-08-02] MEDS ORDERED: DOXY-226 PO (14:21)
--- NOTE | 2019-08-02 15:00 | NUR ---
ms rn patient accidentally removed his iv heplock,, will insert one. patient is verbally abusive and non compliant.
[2019-08-02] MEDS ORDERED: [UNRECOGNIZED DRUG - CODE] TP (15:03)
[2019-08-02] MEDS ORDERED: HYDR-4354 PO (15:03)
[2019-08-02] MEDS ORDERED: DIPH35CR TP (15:03)
[2019-08-02 16:00] VITALS: BP 133/72
--- NOTE | 2019-08-02 16:00 | NUR ---
ms rn patient will gonna be discharge today to [facility].
--- NOTE | 2019-08-02 17:00 | NUR ---
ms rn patient ready to go discharge, but refusing to do picture of his scrotal area.
--- NOTE | 2019-08-02 17:30 | NUR ---
rn patient taken by ambulance, report given to siena reddy,all needs attended.
[2019-08-14] MEDS ORDERED: MERO1VIA3 IV (08:55)
== END 2019-08-02 17:46 | DRG 711 ==
LOC: ER 01:20 → MED 08:38
PROVIDERS: ATTEND Nurse Practitioner Acute Care
PROC: 0VB60ZZ Excision of Right Tunica Vaginalis, Open Approach (ICD-10-PCS; principal; 2019-08-01)
PROC: 0VS90ZZ Reposition Right Testis, Open Approach (ICD-10-PCS; 2019-08-01)
PROC: 0VC50ZZ Extirpation of Matter from Scrotum, Open Approach (ICD-10-PCS; 2019-08-01)
DX: N43.3 Hydrocele, unspecified (principal); N39.0 Urinary tract infection, site not specified; G82.20 Paraplegia, unspecified; N50.89 Other specified disorders of the male genital organs; D64.9 Anemia, unspecified; F17.210 Nicotine dependence, cigarettes, uncomplicated; I10 Essential (primary) hypertension; N31.9 Neuromuscular dysfunction of bladder, unspecified; B96.1 Klebsiella pneumoniae [K. pneumoniae] as the cause of diseases classified elsewhere; W34.00XS Accidental discharge from unspecified firearms or gun, sequela; S30.22XA Contusion of scrotum and testes, initial encounter; X58.XXXA Exposure to other specified factors, initial encounter; Y93.9 Activity, unspecified; Y92.129 Unspecified place in nursing home as the place of occurrence of the external cause
CPT/HCPCS: 36415; 71250-TC; 72192-TC; 72193-TC; 74178; 76870-TC; 80048-TC; 80061-TC; 80076-TC; 81000-TC; 82105; 82728-TC; 83540-TC; 83605-TC; 83615-TC; 83735-TC; 84100-TC; 84443-TC; 84702-TC; 85025-TC; 87081-TC; 87086-TC; 87186-TC; 88302-TC; A6209; G0378; J0690; J0696; J1170; J1630; J2270; J2704; J2916; J3010; J3475; J3490; J7030; J7050; J7060; Q9963; Q9967

== ENCOUNTER 2019-08-06 05:14 | Emergency (ER) | payer MEDICARE, OTHER ==
[~2019-08-06] VITALS: Ht 165.1 cm; Wt 74.8 kg
[~2019-08-06 05:14] MED LIST: ACET325T53 PO; BACL20TA PO; CRAN450C PO; DIPH35CR TP; DOXY-226 PO; HYDR-4354 PO; OXYB5TAB16 PO; [UNRECOGNIZED DRUG - CODE] TP
[2019-08-06 05:22] VITALS: BP 160/98
[2019-08-07] MEDS ORDERED: SENN-168 PO (15:25)
[2019-08-07] MEDS ORDERED: DOXY100C2 PO (15:25)
[2019-08-07] MEDS ORDERED: DOCU-141 PO (15:25)
[2019-08-07] MEDS ORDERED: BACL20TA PO (15:25)
[2019-08-07] MEDS ORDERED: OXYB5TAB16 PO (15:25)
[2019-08-07] MEDS ORDERED: DIPH35CR TP (15:25)
[2019-08-07] MEDS ORDERED: NA P133E RC (15:25)
[2019-08-07] MEDS ORDERED: ACET-2605 PO (15:25)
[2019-08-07] MEDS ORDERED: ACET325T53 PO (15:25)
[2019-08-07] MEDS ORDERED: HYDR-4354 PO (15:25)
[2019-08-07] MEDS ORDERED: MAGN400O6 PO (15:25)
[2019-08-14] MEDS ORDERED: MERO1VIA3 IV (08:55)
== END 2019-08-06 07:00 | disposition home or self-care (01) ==
LOC: ER 05:15
DX: N43.3 Hydrocele, unspecified (principal); G82.20 Paraplegia, unspecified; I10 Essential (primary) hypertension; Z79.899 Other long term (current) drug therapy

== ENCOUNTER 2019-08-07 02:22 | Inpatient (IN) | payer MEDICARE, OTHER ==
[~2019-08-07] VITALS: Ht 182.9 cm; Wt 65.3 kg
--- NOTE | 2019-08-07 02:27 | NUR ---
EDIL FROM STREET. TO ER BED 11. AAOX4. NO RESP DISTRESS NOTED. CAME IN D/T C/O "I CANT TAKE CARE OF MY SELF". PT REPORTS THAT HE HAD JUST HAD A HERNIA SURGERY ON WEDNESDAY ON HIS RLQ ABDOMEN AND IT IS HURTING. PAIN IS REPORT / AND WANTS DILAUDID. NOTED INCSION W/ STABLES ON HIS RLQ ABDOMEN. PT DENIES CP. -NV. PT IS AFEBRILE. AWAITING MD FOR EVAL.
[2019-08-07] MEDS ORDERED: oxyCODONE/APAP (5/325 MG) 1 UDTAB TABLET PO ONE (03:00)
[2019-08-07] MEDS ORDERED: oxyCODONE/APAP (5/325 MG) 1 UDTAB TABLET ONE (03:04)
--- NOTE | 2019-08-07 03:12 | NUR ---
URINE COLLECTED VIA STRAIGHT CATH PER ND ORDERED.
[2019-08-07 03:13] LABS: APPEARANCE,URINE SL CLOUDY (CLEAR); BASOPHILS % (AUTO) 0.5 % (0.0-2.0); BILIRUBIN,URINE NEGATIVE (NEGATIVE); BLOOD, URINE MODERATE Ery/uL (NEGATIVE); COLOR,URINE YELLOW (YELLOW); EOSINOPHILS % (AUTO) 2.9 % (0.0-6.0); HEMATOCRIT 28 % (39-51); HEMOGLOBIN 9.2 g/dL (13.5-17.5); KETONES,URINE NEGATIVE (NEGATIVE); LEUKOCYTE ESTERASE ,URINE TRACE (NEGATIVE); LYMPHOCYTES # (AUTO) 1.1 /CMM (0.8-4.8); LYMPHOCYTES % (AUTO) 15.4 % (20.0-44.0); MEAN CORPUSCULAR HGB CONC 33 g/dl (31.0-36.0); MEAN CORPUSCULAR VOLUME 90 fL (80-96); MONOCYTES # (AUTO) 0.8 /CMM (0.1-1.30); MONOCYTES % (AUTO) 11.6 % (2.0-12.0); NEUTROPHILS % (AUTO) 69.6 % (43.0-81.0); NITRITE, URINE POSITIVE (NEGATIVE); PLATELET COUNT (AUTO) 408 /CMM (150-450); PROTEIN,URINE TRACE mg/dl (NEGATIVE); RED BLOOD CELL COUNT(AUTO) 3.05 MIL/uL (4.5-6.0); UGLUCOSE NEGATIVE (NEGATIVE); WHITE BLOOD COUNT (AUTO) 7.2 K/uL (4.3-11.0)
[2019-08-07 03:19] LABS: CALCIUM, SERUM 8.8 mg/dL (8.5-10.1); CREATININE 0.7 mg/dL (0.6-1.3); POTASSIUM 3.5 mmol/L (3.5-5.1)
[2019-08-07 03:24] LABS: BILIRUBIN,DIRECT 0.1 mg/dL (0.0-0.2); BILIRUBIN,TOTAL 0.3 mg/dL (0.2-1.0); TOTAL PROTEIN, SERUM 7.1 g/dL (6.4-8.2)
[2019-08-07] MEDS ORDERED: CEFTRIAXONE 1 G VIAL IM ONE (04:00)
[2019-08-07] MEDS ORDERED: LIDOCAINE /MPF 1% VIAL 5 ML VIAL ONE (04:05)
[2019-08-07] MEDS ORDERED: CEFTRIAXONE 1 G VIAL ONE (04:06)
--- NOTE | 2019-08-07 04:23 | NUR ---
PT IN BED SLEEPING. NAD NOTED.
[2019-08-07 05:32] LABS: BACTERIA,URINE Moderate /HPF (None Seen); SQUAMOUS EPITHELIAL CELL,UR Few /HPF (None Seen)
--- NOTE | 2019-08-07 05:35 | NUR ---
PT IN BED SLEEPING COMFORTABLE. NO DISTRESS NOTED, BREATHING EVEN AND UNLABORED
--- NOTE | 2019-08-07 07:49 | NUR ---
Patient is resting comfortably in bed with eyes closed. Easily aroused. VSS
--- NOTE | 2019-08-07 09:00 | NUR ---
CALLED SOCIAL SERVICE FOR CONSULT.
--- NOTE | 2019-08-07 10:27 | NUR ---
security services manager consult requested by ER for homelessness but evaluation is for case management as pt was a resident of a custodial facility a week ago [ [facility] Address: [address] [place] [address]; ] per field care coordinator. Pt would like placement at a different custodial facility if possible as he is dissatisfied with the care at [facility]. SW informed Psychologist Military Personnel Brunilda of aforementioned information.
--- NOTE | 2019-08-07 12:48 | NUR ---
OFFERED FOOD TRAY.
--- NOTE | 2019-08-07 13:15 | NUR ---
Spoke with Brunilda [employer]orer [employer], she's still working on placement for this patient.
--- NOTE | 2019-08-07 13:59 | NUR ---
Sarita sharp in [facility] - 08/07/19 at 1400 by LASHANDA [phone]
--- NOTE | 2019-08-07 14:25 | NUR ---
[id number] [facility]
--- NOTE | 2019-08-07 14:42 | NUR ---
REPORT GIVEN TO HOWARD COYLE.
--- NOTE | 2019-08-07 15:02 | NUR ---
patient transferred to [facility] in stable condition, refused to have belongings checked. patient is noted to have a wheelchair at bedside.
--- NOTE | 2019-08-07 15:15 | NUR ---
RN NOTES Patient received at this time. No sob noted, vital signs stable. Patient denies pain at this time. Patient a/o x4 and has no IV lines placed. Patient refused bags to be checked at this time. Patient has photos of wounds and is placed in the chart.
[2019-08-07] MEDS ORDERED: SENN-168 PO (15:25)
[2019-08-07] MEDS ORDERED: NA P133E RC (15:25)
[2019-08-07] MEDS ORDERED: OXYB5TAB16 PO (15:25)
[2019-08-07] MEDS ORDERED: ACET-2605 PO (15:25)
[2019-08-07] MEDS ORDERED: HYDR-4354 PO (15:25)
[2019-08-07] MEDS ORDERED: MAGN400O6 PO (15:25)
[2019-08-07] MEDS ORDERED: DOXY100C2 PO (15:25)
[2019-08-07] MEDS ORDERED: ACET325T53 PO (15:25)
[2019-08-07] MEDS ORDERED: DIPH35CR TP (15:25)
[2019-08-07] MEDS ORDERED: DOCU-141 PO (15:25)
[2019-08-07] MEDS ORDERED: BACL20TA PO (15:25)
[2019-08-07] MEDS ORDERED: ONDANSETRON HCL/PF 4 MG/2 ML VIAL IVP PRN (15:30)
[2019-08-07] MEDS ORDERED: ACETAMINOPHEN 325 MG TABLET PO PRN (15:30)
[2019-08-07] MEDS ORDERED: MAG HYDROX/AL HYDROX/SIMETH 30 ML UDC PO PRN (15:30)
[2019-08-07] MEDS ORDERED: Z GUARD REMEDY 2 OZ OINT TP PRN (15:30)
[2019-08-07] MEDS ORDERED: NA PHOS,M-B/NA PHOS,DI-BA 1 EA ENEMA RC PRN (15:30)
[2019-08-07] MEDS ORDERED: ZOLPIDEM TARTRATE 5 MG TABLET PO PRN (15:30)
[2019-08-07 16:00] VITALS: BP 110/70
[2019-08-07] MEDS ORDERED: diphenhydrAMINE HCL/ZINC ACET CREAM 28.3 GM TUBE TP PRN (16:00)
[2019-08-07] MEDS: IV NS 0.9% 1,000 ML IV PRN (17:09)
[2019-08-07] MEDS: HYDROCODONE/APAP 10/325MG 1 EA TABLET PO PRN ×2 (17:24→21:46)
[2019-08-07] MEDS: BACLOFEN (10 MG) 10 MG TABLET PO SCH (17:24)
[2019-08-07] MEDS: OXYBUTYNIN CHLORIDE 5 MG TABLET PO SCH (17:24)
--- NOTE | 2019-08-07 18:12 | NUR ---
RN CLOSING NOTES Patient remains on room air, no sob noted, patient denies pain at this time. Patient is comfortable in his room at this time. Bed at the lowest setting, call light within reach, side rails up x2. Will continue to monitor patient at this time. Giving report to NOC RN for FRANCISCO bedside.
--- NOTE | 2019-08-07 19:10 | NUR ---
RN OPEN NOTES RECEIVED PATIENT AWAKE IN BED. A/OX4. NO SIGNS OF DISTRESS OR DISCOMFORT. BREATHING EVEN AND UNLABORED. IV ACCESS IN MIRANDA, PATENT AND INTACT, NO SIGNS OF REDNESS OR INFILTRATION. BED IN LOW LOCKED POSITION WITH SIDE RAILS X2. CALL LIGHT WITHIN REACH. WILL CONTINUE TO MONITOR.
[2019-08-07 20:24] VITALS: BP 117/61
[2019-08-07] MEDS: SENNOSIDES 8.6 MG TABLET PO SCH (22:00)
[2019-08-08] MEDS: HYDROCODONE/APAP 10/325MG 1 EA TABLET PO PRN ×4 (01:30→20:56)
--- NOTE | 2019-08-08 07:20 | NUR ---
MS/RN OPENING NOTES RECEIVED PATIENT SLEEPING COMFORTABLY. EASILY AROUSABLE. NO PAIN OR ACUTE DISTRESS AT THIS TIME. RESPIRATION EVEN AND UNLABORED. SKIN IS DRY WARM TO TOUCH. PATIENT IS ALERT AND ORIENTED X4. NOTED WITH IV ACCESS IN APOLINAR. PATENT AND INTACT. NO S/S INFECTION OR INFILTRATION. ALL NEEDS ANTICIPATED. CALL LIGHT WITHIN REACHED. BED LOCKED AND IN LOWEST POSITION. SAFETY MAINTAINED. CALL LIGHT WITHIN REACH. WILL CONTINUE TO MONITOR.
[2019-08-08 07:54] LABS: CALCIUM, SERUM 8.4 mg/dL (8.5-10.1); CREATININE 0.8 mg/dL (0.6-1.3); MAGNESIUM 1.8 mg/dL (1.8-2.4); PHOSPHORUS 2.9 mg/dL (2.5-4.9); POTASSIUM 3.1 mmol/L (3.5-5.1)
[2019-08-08 08:00] VITALS: BP 114/65
[2019-08-08 08:55] LABS: BASOPHILS % (AUTO) 0.3 % (0.0-2.0); EOSINOPHILS % (AUTO) 3.8 % (0.0-6.0); HEMATOCRIT 27 % (39-51); HEMOGLOBIN 8.9 g/dL (13.5-17.5); LYMPHOCYTES # (AUTO) 1.6 /CMM (0.8-4.8); LYMPHOCYTES % (AUTO) 21.5 % (20.0-44.0); MEAN CORPUSCULAR HGB CONC 33 g/dl (31.0-36.0); MEAN CORPUSCULAR VOLUME 92 fL (80-96); MONOCYTES # (AUTO) 0.6 /CMM (0.1-1.30); MONOCYTES % (AUTO) 7.9 % (2.0-12.0); NEUTROPHILS % (AUTO) 66.5 % (43.0-81.0); PLATELET COUNT (AUTO) 414 /CMM (150-450); RED BLOOD CELL COUNT(AUTO) 2.93 MIL/uL (4.5-6.0); WHITE BLOOD COUNT (AUTO) 7.5 K/uL (4.3-11.0)
[2019-08-08] MEDS: OXYBUTYNIN CHLORIDE 5 MG TABLET PO SCH ×2 (09:01→16:13)
[2019-08-08] MEDS: BACLOFEN (10 MG) 10 MG TABLET PO SCH ×2 (09:01→16:13)
[2019-08-08] MEDS: POTASSIUM CHLORIDE 20 MEQ TAB.PRT.SR PO SCH ×2 (11:35→12:30)
--- NOTE | 2019-08-08 11:54 | NUR ---
oil well services superintendent consult requested by Benjamin Thomas for homelessness but evaluation is for case management as pt was a resident of a long-term facility a week ago [ [facility] Address: [address] [place] [address]; ] per facilitys international logistics coordinator. Pt would like placement at a different long-term facility if possible as he is dissatisfied with the care at [facility]. KONG has already informed Middle School Principal Brunilda of aforementioned information.
[2019-08-08] MEDS: POTASSIUM CHLORIDE 20 MEQ TAB.PRT.SR PO ONE ×2 (14:04→14:05)
[2019-08-08 16:18] VITALS: BP 115/85
[2019-08-08] MEDS: IV NS 0.9% 1,000 ML IV PRN (18:24)
--- NOTE | 2019-08-08 18:40 | NUR ---
MS/RN CLOSING NOTES PATIENT CONTINUES TO REMAIN IN STABLE CONDITION THROUGHOUT THE SHIFT. PROVIDED COMFORT AND SAFETY. NOTED WITH IV ACCESS IN APOLINAR. PATENT AND INTACT. NO S/S INFECTION OR INFILTRATION. ALL NEEDS ANTICIPATED. CALL LIGHT WITHIN REACHED. BED LOCKED AND IN LOWEST POSITION. SAFETY MAINTAINED. CALL LIGHT WITHIN REACH. WILL CONTINUE TO MONITOR. ENDORSED TO PM NURSE FOR FRANCISCO.
--- NOTE | 2019-08-08 19:00 | NUR ---
MS RN NOTE RECEIVED PT IN STABLE CONDITION A/O X4, CURRENTLY WATCHING TV. NO SIGNS OF SOB OR DISTRESS, NO C/O PAIN OR N/V. IV IN RUP #[address] WITH IVF INFUSING, TOLERATING WELL. ALL CURRENT NEEDS ATTENDED TO. BED LOW, LOCKED, UPPER RAILS UP, AND CALL LIGHT WITHIN REACH. WILL CONT. TO MONITOR.
[2019-08-08 20:35] VITALS: BP 128/65
[2019-08-08] MEDS: SENNOSIDES 8.6 MG TABLET PO SCH (21:16)
[2019-08-09] MEDS: HYDROCODONE/APAP 10/325MG 1 EA TABLET PO PRN ×5 (01:06→20:00)
[2019-08-09] MEDS: CEFTRIAXONE 1 G in IV D5W 50 ML IV SCH (05:19)
[2019-08-09] MEDS: IV NS 0.9% 1,000 ML IV PRN (05:28)
--- NOTE | 2019-08-09 06:14 | NUR ---
MS RN NOTE PT REMAINS IN STABLE CONDITION A/O X4, CURRENTLY WATCHING TV. NO SIGNS OF SOB OR DISTRESS, NO C/O PAIN OR N/V. IV IN [place] #[address] WITH IVF INFUSING, TOLERATING WELL. ALL CURRENT NEEDS ATTENDED TO. BED LOW, LOCKED, UPPER RAILS UP, AND CALL LIGHT WITHIN REACH. WILL CONT. TO MONITOR AND ENDORSE TO NEXT SHIFT FOR FRANCISCO.
[2019-08-09 07:08] LABS: BASOPHILS % (AUTO) 0.3 % (0.0-2.0); HEMATOCRIT 26 % (39-51); HEMOGLOBIN 8.6 g/dL (13.5-17.5); LYMPHOCYTES # (AUTO) 1.6 /CMM (0.8-4.8); LYMPHOCYTES % (AUTO) 17.4 % (20.0-44.0); MEAN CORPUSCULAR HGB CONC 33 g/dl (31.0-36.0); MEAN CORPUSCULAR VOLUME 93 fL (80-96); MONOCYTES # (AUTO) 0.7 /CMM (0.1-1.30); MONOCYTES % (AUTO) 7.6 % (2.0-12.0); NEUTROPHILS # (AUTO) 6.4 /CMM (1.8-8.9); NEUTROPHILS % (AUTO) 70.7 % (43.0-81.0); PLATELET COUNT (AUTO) 410 /CMM (150-450); RED BLOOD CELL COUNT(AUTO) 2.81 MIL/uL (4.5-6.0); WHITE BLOOD COUNT (AUTO) 9.1 K/uL (4.3-11.0)
--- NOTE | 2019-08-09 07:20 | NUR ---
RN OPENING NOTES PT IS AWAKE AND DENIES SOB. STATES HE IS ABLE TO FEEL HIS SCROTUM AND IS IN SOME DISCOMFORT AND WOULD LIKE TO SPEAK WITH THE MD. PT IS RECEIVING FLUIDS AND IS IN BED IN SEMI HACKETT POSITION. PT IS ABLE TO MAKE NEEDS KNOWN. BED IS LOCKED AND IN LOWEST POSITION WITH CALL LIGHT IN REACH OF PT, WILL CONTINUE TO MONITOR.
[2019-08-09 07:23] LABS: CREATININE 0.7 mg/dL (0.6-1.3); POTASSIUM 3.5 mmol/L (3.5-5.1)
[2019-08-09 08:00] VITALS: BP 116/53
[2019-08-09] MEDS: OXYBUTYNIN CHLORIDE 5 MG TABLET PO SCH ×2 (09:08→16:07)
[2019-08-09] MEDS: BACLOFEN (10 MG) 10 MG TABLET PO SCH ×2 (09:08→16:06)
--- NOTE | 2019-08-09 11:42 | NUR ---
RN NOTES patient received from Zain COYLE for FRANCISCO. Patient on RA no sob noted, patient denies pain at this time, a/o x4 and has no current concerns. Patient remains with R UA 20 NS @ 75 ml per hour. Bed at the lowest setting, call light within reach, side rails up x2.
[2019-08-09 16:00] VITALS: BP 130/64
[2019-08-09 20:00] VITALS: BP 113/73
[2019-08-09] MEDS: SENNOSIDES 8.6 MG TABLET PO SCH (20:00)
[2019-08-10] MEDS: HYDROCODONE/APAP 10/325MG 1 EA TABLET PO PRN ×5 (00:08→20:24)
--- NOTE | 2019-08-10 04:02 | NUR ---
RN NOTES complained of generalized pain- [place] 10/325mg po given as ordered, V/s stable
[2019-08-10] MEDS: CEFTRIAXONE 1 G in IV D5W 50 ML IV SCH (05:23)
--- NOTE | 2019-08-10 06:31 | NUR ---
MS RN NOTES AWAKE & RESPONSIVE. NOT IN ANY DISTRESS. NO SOB NOTED. DENIES ANY PAIN OR DISCOMFORT AT THIS TIME. WITH IVF INFUSING WELL. AM CARE DONE. MONITORED ACCORDINGLY. CALL LIGHT WITHIN REACH. BED IN LOWEST POSITION. SR UP X 3 WITH BED ALARM ON FOR SAFETY. WILL ENDORSE TO NEXT SHIFT.
--- NOTE | 2019-08-10 07:30 | NUR ---
RN OPENING NOTES RECEIVED PATIENT IN BED RESTING COMFORTABLY IN MODERATE HIGH BACK REST. A/O X4. NO SIGNS OF DISTRESS NOTED AT THIS TIME. ON IV FLUIDS WITH NS RUNNING @ 75ML.HR. PATENT AND INTACT. SAFETY MEASURES IN PLACE. BED IS LOCKED AND IN LOWEST POSITION WITH CALL LIGHT IN REACH OF PT, WILL CONTINUE TO MONITOR.
[2019-08-10 08:00] VITALS: BP 90/51
--- NOTE | 2019-08-10 08:05 | NUR ---
RN NOTES PATIENT IS REFUSING TO GET BLOOD DRAW. EXPLAINED THE RISKS AND BENEFITS BUT STILL REFUSE, WILL CONTINUE TO MONITOR.
[2019-08-10] MEDS: BACLOFEN (10 MG) 10 MG TABLET PO SCH ×2 (08:12→17:04)
[2019-08-10] MEDS: OXYBUTYNIN CHLORIDE 5 MG TABLET PO SCH ×2 (08:12→17:04)
[2019-08-10] MEDS: IV NS 0.9% 1,000 ML IV PRN (08:54)
[2019-08-10] MEDS ORDERED: MEROPENEM 1 G in IV NS 0.9% 100 ML IV ONE (10:00)
[2019-08-10 11:37] LABS: BASOPHILS % (AUTO) 0.4 % (0.0-2.0); HEMATOCRIT 27 % (39-51); HEMOGLOBIN 8.7 g/dL (13.5-17.5); LYMPHOCYTES # (AUTO) 1.1 /CMM (0.8-4.8); LYMPHOCYTES % (AUTO) 15.7 % (20.0-44.0); MEAN CORPUSCULAR HGB CONC 32 g/dl (31.0-36.0); MEAN CORPUSCULAR VOLUME 93 fL (80-96); MONOCYTES # (AUTO) 0.4 /CMM (0.1-1.30); NEUTROPHILS # (AUTO) 5.3 /CMM (1.8-8.9); NEUTROPHILS % (AUTO) 73.9 % (43.0-81.0); PLATELET COUNT (AUTO) 459 /CMM (150-450); RED BLOOD CELL COUNT(AUTO) 2.94 MIL/uL (4.5-6.0); WHITE BLOOD COUNT (AUTO) 7.2 K/uL (4.3-11.0)
[2019-08-10 11:38] LABS: CALCIUM, SERUM 8.3 mg/dL (8.5-10.1); CREATININE 0.9 mg/dL (0.6-1.3); POTASSIUM 3.7 mmol/L (3.5-5.1)
[2019-08-10 15:21] VITALS: BP 117/72
--- NOTE | 2019-08-10 18:33 | NUR ---
RN CLOSING NOTES PATIENT IN BED RESTING COMFORTABLY IN MODERATE HIGH BACK REST. A/O X4. NO SIGNS OF DISTRESS NOTED THROUGHOUT THE SHIFT. ON IV FLUIDS WITH NS RUNNING @ 75ML.HR. PATENT AND INTACT. ISOLATION PRECAUTION MAINTAINED. SAFETY MEASURES IN PLACE. BED IS LOCKED AND IN LOWEST POSITION WITH CALL LIGHT IN REACH OF PT, WILL ENDORSE TO DUST COLLECTOR TREATER NURSE FOR FRANCISCO.
[2019-08-10 19:30] VITALS: BP 116/79
--- NOTE | 2019-08-10 19:40 | NUR ---
MS RN NOTES PATIENT IN BED AWAKE, ALERT AND ORIENTED X 4. BREATHING EVEN AND UNLABORED ON ROOM AIR. DENIES ACUTE RESPIRATORY DISTRESS, NO ACUTE PAIN. IV ON LEFT UPPER ARM 20G, CLEAN, DRY, AND INTACT. SHOWS NO REDNESS, NO INFILTRATION. SAFETY PRECAUTION IN PLEASE. BED IN LOWEST POSITION, LOCKED, AND CALL LIGHT KEPT WITHIN REACH. WILL CONTINUE TO MONITOR.
[2019-08-10 20:00] VITALS: BP 116/66
[2019-08-10] MEDS: MEROPENEM 1 G in IV NS 0.9% 100 ML IV SCH (20:20)
--- NOTE | 2019-08-10 20:24 | NUR ---
MS RN NOTES PATIENT COMPLAINED OF PAIN 06/01. PRN NORCO GIVEN AT 2023
[2019-08-10] MEDS: SENNOSIDES 8.6 MG TABLET PO SCH (21:04)
[2019-08-11] MEDS: HYDROCODONE/APAP 5/325MG 1 EACH TABLET PO PRN ×5 (01:26→20:46)
--- NOTE | 2019-08-11 01:26 | NUR ---
MS RN NOTES PATIENT COMPLAINED OF PAIN. GIVEN [place] 2023. WILL CONTINUE TO MONITOR.
[2019-08-11] MEDS: MEROPENEM 1 G in IV NS 0.9% 100 ML IV SCH ×3 (04:51→20:45)
[2019-08-11] MEDS: HYDROCODONE/APAP 10/325MG 1 EA TABLET PO PRN (05:32)
--- NOTE | 2019-08-11 05:39 | NUR ---
MS RN NOTES PATIENT COMPLAINED OF PAIN /. PRN NORCO GIVEN AT 0530. WILL CONTINUE TO MONITOR.
--- NOTE | 2019-08-11 06:37 | NUR ---
MS RN NOTES PATIENT IN BED ASLEEP, ALERT AND ORIENTED X 4. BREATHING EVEN AND UNLABORED ON ROOM AIR. DENIES ACUTE RESPIRATORY DISTRESS, NO ACUTE PAIN. IV ON LEFT UPPER ARM 20G, CLEAN, DRY, AND INTACT. SHOWS NO REDNESS, NO INFILTRATION. ALL DUE MEDICATIONS GIVEN. SAFETY PRECAUTION IN PLEASE. BED IN LOWEST POSITION, LOCKED, AND CALL LIGHT KEPT WITHIN REACH. WILL ENDORSE TO ONCOMING NURSE.
--- NOTE | 2019-08-11 07:21 | NUR ---
MS RN OPENING NOTES RECEIVED PATIENT IN BED, AWAKE, A/O X4. PATIENT ON ROOM AIR BREATHING EVENLY, UNLABORED WITH NO ACUTE SIGNS OF DISTRESS AT THE MOMENT. NS LOCK GAUGE # 20 ON APOLINAR INTACT AND FLUSHING WELL. NO SIGNS OF INFILTRATION. SAFETY PRECAUTIONS IN PLACE; BED IN LOW POSITION AND LOCKED, RAILS UP X 2, CALL LIGHT WITHIN REACH. WILL CONTINUE TO MONITOR THE PATIENT.
[2019-08-11 08:00] VITALS: BP 109/65
[2019-08-11] MEDS: OXYBUTYNIN CHLORIDE 5 MG TABLET PO SCH ×2 (08:23→16:45)
[2019-08-11] MEDS: BACLOFEN (10 MG) 10 MG TABLET PO SCH ×2 (08:23→16:45)
[2019-08-11 08:56] LABS: BASOPHILS # (AUTO) 0.1 /CMM (0.0-0.2); BASOPHILS % (AUTO) 1.1 % (0.0-2.0); EOSINOPHILS % (AUTO) 4.1 % (0.0-6.0); HEMATOCRIT 27 % (39-51); HEMOGLOBIN 8.8 g/dL (13.5-17.5); LYMPHOCYTES # (AUTO) 1.1 /CMM (0.8-4.8); LYMPHOCYTES % (AUTO) 17.6 % (20.0-44.0); MEAN CORPUSCULAR HGB CONC 32 g/dl (31.0-36.0); MEAN CORPUSCULAR VOLUME 92 fL (80-96); MONOCYTES # (AUTO) 0.5 /CMM (0.1-1.30); MONOCYTES % (AUTO) 7.4 % (2.0-12.0); NEUTROPHILS # (AUTO) 4.5 /CMM (1.8-8.9); NEUTROPHILS % (AUTO) 69.8 % (43.0-81.0); PLATELET COUNT (AUTO) 482 /CMM (150-450); RED BLOOD CELL COUNT(AUTO) 2.98 MIL/uL (4.5-6.0); WHITE BLOOD COUNT (AUTO) 6.5 K/uL (4.3-11.0)
[2019-08-11 09:04] LABS: CALCIUM, SERUM 8.1 mg/dL (8.5-10.1); CREATININE 0.8 mg/dL (0.6-1.3); POTASSIUM 4.3 mmol/L (3.5-5.1)
[2019-08-11 16:00] VITALS: BP 114/70
--- NOTE | 2019-08-11 18:44 | NUR ---
RN CLOSING NOTES PATIENT IN BED RESTING COMFORTABLY WATCHING TV. A/O X 4. HEAD OF THE BED ELEVATED AT 30 DEGREED WITH NO SIGNS OF DISTRESS AT THE MOMENT. ABLE TO VERBALIZE NEEDS. IV FLUIDS INFUSING AT 75ML/HR. SALINE LINE PATENT AND INTACT. ISOLATION PRECAUTION MAINTAINED. SAFETY MEASURES IN PLACE; BED IN LOW POSITION AND LOCKED, RAILS UP X 2, CALL LIGHT WITHIN REACH OF PT, WILL ENDORSE TO COLD WATER MACHINE OPERATOR NURSE FOR FRANCISCO.
--- NOTE | 2019-08-11 19:00 | NUR ---
RN NOTES: RECEIEVED AWAKE ON BED, LYING COMFORTABLY,A/OX4, ORIENTED TO UNIT AND STAFF, ISOLATION PRECAUTION FOR ESBL URINE OBSERVED, IV CANNULA AT APOLINAR G#20 PATENT, IVF OF NS AT 75 ML/HR ONGOING, ASKING FOR HER NEXT PAIN MEDICATION DUE AT 2030, FALL, SAFETY AND ASPIRATION PRECAUTION OBSERVED, BED LOW AND LOCKED, CALL LIGHT WITHIN EASY REACH.
[2019-08-11 20:00] VITALS: BP 118/77
[2019-08-11] MEDS: SENNOSIDES 8.6 MG TABLET PO SCH (21:00)
--- NOTE | 2019-08-11 21:02 | NUR ---
RN NOTES: COMPLAINED OF MODERATE GENERALIZED PAIN 01/30 AT 2045, REQUEST FOR PAIN MEDICATION, GIVEN.NON PHARMACOLOGIC INTERVENTION RENDERED, WARM BLANKET GIVEN.
--- NOTE | 2019-08-12 00:22 | NUR ---
RN NOTES: REQUESTING FOR SELF CATHETERIZATION, IN AND OUT, EXPLAINED TO HIM THAT WE NEED TO NOTIFY THE DOCTOR FIRST AD GET AN ORDER, HE WAS STARTING TO GET AGITATED AND GETTING UPSET THAT NO ONE LISTEN TO HIM, RN TRYING TO PACIFY HIM AND EXPLAIN TO HIM BUT HE WAS JUST INSISTING HIS POINT HE WANTS A CATHETERIZATION TRAY. -HISTORIAN RESEARCH ASSISTANT NOTIFIED AND ORDER GIVEN. -HE CLAIMED THAT HIS BEEN DOING SELF CATHETERIZATION FOR LONG TIME, HE HAS PARAPLEGIA, CATHETERIZATION TRAY GIVEN AND INSTRUCTION GIVEN TO HIM AND HE KEEP TELLING 'I KNOW HOW TO DO IT".
[2019-08-12] MEDS: HYDROCODONE/APAP 5/325MG 1 EACH TABLET PO PRN ×3 (01:04→18:11)
--- NOTE | 2019-08-12 01:05 | NUR ---
RN NOTES: REQUEST FOR PAIN MEDICATION 01/30, GENERALIZED PAIN, GIVEN, NON PHARMACOLOGIC INTERVENTION RENDERED.
[2019-08-12] MEDS: MEROPENEM 1 G in IV NS 0.9% 100 ML IV SCH ×3 (04:31→21:38)
[2019-08-12] MEDS: HYDROCODONE/APAP 10/325MG 1 EA TABLET PO PRN ×3 (05:49→22:48)
--- NOTE | 2019-08-12 05:51 | NUR ---
RN NOTES AWAKE, CALLED TO ASK FOR HIS PAIN MEDICATION, HE PASS URINE IN THE URINAL, PAIN 9/10, REQUEST FOR STRONGER PAIN MEDICATION, IV CANNULA SITE CHECK, FLUSHING DONE, PATENT, IV/ATB ONGOING, KEPT ON CLOSE WATCH.
--- NOTE | 2019-08-12 06:04 | NUR ---
RN NOTES: LITTLE LEAKING NOTED ON THE IV SITE, HE REFUSE FOR REINSERTION, WHEN FLUSH IT WAS STILL PATENT, NO BULGING OR SIGN OF INFILTRATION NOTED, IVF/ATB CONTINUE INFUSING.
--- NOTE | 2019-08-12 07:20 | NUR ---
MS RN OPENING NOTES RECEIVED PT IN BED, AWAKE, A/O X4. PT TOLERATING RA, WITH NO ACUTE RESPIRATORY DISTRESS NOTED. PT DENIES ANY PAIN OR DISCOMFORT AT THIS TIME. ALSO DENIES ANY CONCERNS AND QUESTIONS AT THIS MOEMNT. PIV TO APOLINAR G20 SL, FLUSHED WITH NS, INTACT AND OPERATIONAL, PER PT PREFERS NOT TO GET IVF NS AT THE MOMENT ONLY ANTIBIOTICS. MD/DARIUS MADE AWARE. PT KEPT COMFORTABLE. CALL LIGHT KEPT WITHIN REACH. PT'S BED IN LOWEST, LOCKED POSITION WITH SRX3. WILL CONTINUE PLAN OF CARE.
--- NOTE | 2019-08-12 07:32 | NUR ---
RN NOTES: ABLE TO SLEEP AND REST, CALL LIGHT WITHIN EASY REACH, NO PAIN,ENDORSED FOR CONTINUITY OF CARE.
[2019-08-12 08:00] VITALS: BP 126/71
[2019-08-12] MEDS: BACLOFEN (10 MG) 10 MG TABLET PO SCH ×2 (09:05→16:10)
[2019-08-12] MEDS: OXYBUTYNIN CHLORIDE 5 MG TABLET PO SCH ×2 (09:05→16:10)
[2019-08-12 10:12] LABS: BASOPHILS % (AUTO) 0.8 % (0.0-2.0); EOSINOPHILS % (AUTO) 5.2 % (0.0-6.0); HEMATOCRIT 29 % (39-51); HEMOGLOBIN 9.1 g/dL (13.5-17.5); MEAN CORPUSCULAR HGB CONC 32 g/dl (31.0-36.0); MEAN CORPUSCULAR VOLUME 92 fL (80-96); MONOCYTES # (AUTO) 0.4 /CMM (0.1-1.30); MONOCYTES % (AUTO) 7.1 % (2.0-12.0); NEUTROPHILS # (AUTO) 4.2 /CMM (1.8-8.9); NEUTROPHILS % (AUTO) 69.9 % (43.0-81.0); PLATELET COUNT (AUTO) 495 /CMM (150-450); RED BLOOD CELL COUNT(AUTO) 3.11 MIL/uL (4.5-6.0); WHITE BLOOD COUNT (AUTO) 5.9 K/uL (4.3-11.0)
[2019-08-12 10:59] LABS: CALCIUM, SERUM 8.5 mg/dL (8.5-10.1); CREATININE 0.8 mg/dL (0.6-1.3); POTASSIUM 4.4 mmol/L (3.5-5.1)
[2019-08-12 16:00] VITALS: BP 112/67
--- NOTE | 2019-08-12 18:33 | NUR ---
MS RN CLOSING NOTES PT IN BED, AWAKE, A/O X4. PT TOLERATING RA, WITH NO ACUTE RESPIRATORY DISTRESS NOTED. PT HAS PAIN AND JUST GAVE PRN PAIN MEDICINE ORDERED. PIV TO APOLINAR G20 SL, FLUSHED WITH NS, INTACT AND OPERATIONAL, PER PT PREFERS NOT TO GET IVF NS, ONLY ANTIBIOTICS. MD/DARIUS MADE AWARE. PT KEPT COMFORTABLE. ALL NEEDS AND CARE ATTENDED AND PROVIDED. CALL LIGHT KEPT WITHIN REACH. PT'S BED IN LOWEST, LOCKED POSITION WITH SRX3. WILL ENDORSE TO INCOMING FAMILY CONSULTANT NURSE FOR FRANCISCO.
--- NOTE | 2019-08-12 19:20 | NUR ---
RN OPEN NOTES RECEIVED PATIENT AWAKE IN BED. A/OX4. NO SIGNS OF DISTRESS OR DISCOMFORT. BREATHING EVEN AND UNLABORED. IV ACCESS IN APOLINAR, PATENT AND INTACT, NO SIGNS OF REDNESS OR INFILTRATION. BED IN LOW LOCKED POSITION WITH SIDE RAILS X2. CALL LIGHT WITHIN REACH. WILL CONTINUE TO MONITOR.
[2019-08-12 20:00] VITALS: BP 151/78
[2019-08-12] MEDS: SENNOSIDES 8.6 MG TABLET PO SCH (21:39)
--- NOTE | 2019-08-12 22:48 | NUR ---
RN NOTES ADMINISTERED NORCO 10/325 ORDERED FOR GENERALIZED PAIN 10/10, AT PATIENT REQUEST. VSS. WILL CONTINUE TO MONITOR.
[2019-08-13] MEDS: HYDROCODONE/APAP 10/325MG 1 EA TABLET PO PRN ×4 (03:04→21:56)
--- NOTE | 2019-08-13 03:04 | NUR ---
RN NOTES ADMINISTERED NORCO 10/325 ORDERED FOR GENERALIZED PAIN 10/10, AT PATIENT REQUEST. VSS. WILL CONTINUE TO MONITOR.
[2019-08-13] MEDS: MEROPENEM 1 G in IV NS 0.9% 100 ML IV SCH ×3 (05:54→21:56)
[2019-08-13 07:17] LABS: BASOPHILS % (AUTO) 0.5 % (0.0-2.0); EOSINOPHILS % (AUTO) 5.1 % (0.0-6.0); HEMATOCRIT 27 % (39-51); HEMOGLOBIN 8.9 g/dL (13.5-17.5); LYMPHOCYTES # (AUTO) 1.6 /CMM (0.8-4.8); LYMPHOCYTES % (AUTO) 28.3 % (20.0-44.0); MEAN CORPUSCULAR HGB CONC 33 g/dl (31.0-36.0); MEAN CORPUSCULAR VOLUME 91 fL (80-96); MONOCYTES # (AUTO) 0.5 /CMM (0.1-1.30); MONOCYTES % (AUTO) 7.9 % (2.0-12.0); NEUTROPHILS # (AUTO) 3.4 /CMM (1.8-8.9); NEUTROPHILS % (AUTO) 58.2 % (43.0-81.0); PLATELET COUNT (AUTO) 476 /CMM (150-450); RED BLOOD CELL COUNT(AUTO) 2.96 MIL/uL (4.5-6.0); WHITE BLOOD COUNT (AUTO) 5.8 K/uL (4.3-11.0)
--- NOTE | 2019-08-13 07:34 | NUR ---
RN OPENING NOTES Patient received on room air, no sob noted, patient denies pain at this time. Patient able to use wheelchair to the restroom by himself. Remains a/o x4 and is refusing IVF at this time. Bed at the lowest setting, call light within reach, side rails up x2.
[2019-08-13 07:36] LABS: CALCIUM, SERUM 8.3 mg/dL (8.5-10.1); CREATININE 0.7 mg/dL (0.6-1.3); POTASSIUM 4.4 mmol/L (3.5-5.1)
--- NOTE | 2019-08-13 07:39 | NUR ---
RN CLOSING NOTES PATIENT AWAKE IN BED. A/OX4. NO SIGNS OF DISTRESS OR DISCOMFORT. BREATHING EVEN AND UNLABORED. IV ACCESS IN APOLINAR, PATENT AND INTACT, NO SIGNS OF REDNESS OR INFILTRATION. ALL NEEDS MET. NO SIGNIFICANT CHANGES THROUGH THE NIGHT. BED IN LOW LOCKED POSITION WITH SIDE RAILS X2. CALL LIGHT WITHIN REACH. ENDORSED TO AM SHIFT FOR FRANCISCO.
[2019-08-13] MEDS: OXYBUTYNIN CHLORIDE 5 MG TABLET PO SCH ×2 (08:28→16:47)
[2019-08-13] MEDS: BACLOFEN (10 MG) 10 MG TABLET PO SCH ×2 (08:28→16:47)
[2019-08-13 16:00] VITALS: BP 129/79
--- NOTE | 2019-08-13 18:32 | NUR ---
RN CLOSING NOTES Patient remains on room air, no sob noted, patient able to use wheelchair independently. Patient remains a/o x4. Patient remains on diaper and can use catheter to himself. Currently awaiting iso room in SNF. Bed at the lowest setting, call light within reach, side rails up x2. Will give report to NOC RN for FRANCISCO bedside.
--- NOTE | 2019-08-13 19:15 | NUR ---
RN OPEN NOTES RECEIVED PATIENT AWAKE IN BED. A/OX4. NO SIGNS OF DISTRESS OR DISCOMFORT. BREATHING EVEN AND UNLABORED. IV ACCESS IN RFA, PATENT AND INTACT, NO SIGNS OF REDNESS OR INFILTRATION. BED IN LOW LOCKED POSITION WITH SIDE RAILS X2. CALL LIGHT WITHIN REACH. WILL CONTINUE TO MONITOR.
[2019-08-13 20:00] VITALS: BP 115/56
[2019-08-13] MEDS: SENNOSIDES 8.6 MG TABLET PO SCH (21:56)
--- NOTE | 2019-08-13 22:00 | NUR ---
RN NOTES PATIENT REFUSED TO UPDATE CHART WITH WOUND PHOTOS. PATIENT STATES HE'S LEAVING TOMORROW SO IT MAKES NO SENSE TO TAKE PICTURES. PATIENT EDUCATION REINFORCED, ADVISED THAT WE UPDATE CHARTS EVERY WEDNESDAY, STILL REFUSED X3. WILL CONTINUE TO MONITOR.
[2019-08-14] MEDS: HYDROCODONE/APAP 10/325MG 1 EA TABLET PO PRN ×4 (02:01→18:42)
[2019-08-14] MEDS: MEROPENEM 1 G in IV NS 0.9% 100 ML IV SCH ×2 (06:10→14:13)
--- NOTE | 2019-08-14 07:00 | NUR ---
RN CLOSING NOTES PATIENT AWAKE IN BED. A/OX4. NO SIGNS OF DISTRESS OR DISCOMFORT. BREATHING EVEN AND UNLABORED. IV ACCESS IN RFA WITH [place] INFUSING, PATENT AND INTACT, NO SIGNS OF REDNESS OR INFILTRATION. ALL NEEDS MET. NO SIGNIFICANT CHANGES THROUGH THE NIGHT.BED IN LOW LOCKED POSITION WITH SIDE RAILS X2. CALL LIGHT WITHIN REACH. WILL ENDORSE TO AM SHIFT FOR FRANCISCO.
--- NOTE | 2019-08-14 07:31 | NUR ---
RN MS OPENING NOTES Patient received on room air, no sob noted, patient denies pain at this time. Patient comfortable on his bed with no complaints. Bed at the lowest setting, call light within reach, side rails up x2.
[2019-08-14 08:00] VITALS: BP 106/80
[2019-08-14] MEDS: OXYBUTYNIN CHLORIDE 5 MG TABLET PO SCH ×2 (08:04→16:22)
[2019-08-14] MEDS: BACLOFEN (10 MG) 10 MG TABLET PO SCH ×2 (08:04→16:22)
[2019-08-14] MEDS ORDERED: MERO1VIA3 IV (08:55)
--- NOTE | 2019-08-14 14:30 | NUR ---
RN NOTES Patient removed IV line by himself at this time. Will try to reinsert.
[2019-08-14 16:00] VITALS: BP 115/64
--- NOTE | 2019-08-14 18:46 | NUR ---
RN NOTES Patient refused photos to be taken for his discharge photos x3.
--- NOTE | 2019-08-14 19:25 | NUR ---
RN OPENING PM NOTES REPORT RECIEVED FROM HOWARD COYLE. PATIENT TO BE DISCHARGED TO [facility] IN [place]. IV PATENT AND INTACT, NO SIGNS OF REDNESS OR INFILTRATION PATIENT TO BE DISCHARGED WITH IV PER REPORT. HOWARD COYLE STATED REPORT THAT REPORT HAD BEEN CALLED TO FACILITY. 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 WILL AWAIT AMBULANCE PICKUP. PATIENT AWAKE IN BED. A/OX4. NO SIGNS OF DISTRESS OR DISCOMFORT. BREATHING EVEN AND UNLABORED. BED IN LOW LOCKED POSITION WITH SIDE RAILS X2. CALL LIGHT WITHIN REACH. WILL CONT TO MONITOR. Addendum: 08/15/19 at 0054 by FERNANDA TELLO RN note entered by fernanda tello rn.
[2019-08-14 20:00] VITALS: BP 106/56
--- NOTE | 2019-08-14 20:43 | NUR ---
bryanna called to inquire about status of pickup. dealyed till 1030pm state that the ambulance was delayed on their previous trip so the new prospective pickup time is 1030 pm phone [phone] Addendum: 08/15/19 at 0054 by FERNANDA TELLO RN note entered by fernanda tello rn.
--- NOTE | 2019-08-14 21:23 | NUR ---
bhavana at bedside for picup, [facility] called confirmed report. [facility] here to assembly supervisor pt. report given to aileen kamron. patient going to [facility] snf room 6a. [facility] called and spoke with mima reddy. states he recieved report earlier and they are still expecting the patient. pt to be transported to [facility]. Addendum: 08/15/19 at 0054 by FERNANDA TELLO RN note entered by fernanda tello rn. Addendum: 08/15/19 at 0143 by FERNANDA TELLO RN pt was transported with iv 22 gauge to [facility] intact and patent. with no s/s of infiltration.
--- NOTE | 2019-08-15 00:54 | NUR ---
note entered by fernanda tello rn. Addendum: 08/15/19 at 0055 by FERNANDA TELLO RN error
== END 2019-08-14 21:35 | DRG 689 ==
LOC: ER 02:26 → MED 14:32
PROVIDERS: ADMIT Nurse Practitioner Acute Care; ATTEND Family Medicine
DX: N39.0 Urinary tract infection, site not specified (principal); G82.50 Quadriplegia, unspecified; D68.59 Other primary thrombophilia; E87.0 Hyperosmolality and hypernatremia; I10 Essential (primary) hypertension; Z87.440 Personal history of urinary (tract) infections; F17.210 Nicotine dependence, cigarettes, uncomplicated; D63.8 Anemia in other chronic diseases classified elsewhere; E86.1 Hypovolemia; E87.6 Hypokalemia; G89.4 Chronic pain syndrome; N31.9 Neuromuscular dysfunction of bladder, unspecified; Z59.0 Homelessness; Z99.3 Dependence on wheelchair; Z79.899 Other long term (current) drug therapy; W34.00XS Accidental discharge from unspecified firearms or gun, sequela; Z74.09 Other reduced mobility; R13.10 Dysphagia, unspecified; Z98.890 Other specified postprocedural states; B96.89 Other specified bacterial agents as the cause of diseases classified elsewhere
CPT/HCPCS: 36415; 80048-TC; 80076-TC; 81000-TC; 82728-TC; 83540-TC; 83690-TC; 83735-TC; 84100-TC; 85025-TC; 87086-TC; 87186-TC; 97530-TC; G0378; J0696; J2185; J3490; J7030; J7060